=== PATIENT | male | born 1985 | race Caucasian/White ===

== ENCOUNTER 2021-10-08 11:44 | Emergency (ER) | payer OTHER, SELFPAY ==
--- NOTE | 2021-10-08 | ECG_ITS ---
Test Reason : chest pain Blood Pressure : / mmHG Vent. Rate : 107 BPM Atrial Rate : 107 BPM P-R Int : 118 ms QRS Dur : 090 ms QT Int : 318 ms P-R-T Axes : 088 091 067 degrees QTc Int : 424 ms Sinus tachycardia Right atrial enlargement Rightward axis Pulmonary disease pattern Abnormal ECG When compared with ECG of 31-JUL-2019 09:37, Vent. rate has increased BY 40 BPM Referred By: Generic ED Physician Electronically Signed By:Cornell Carrillo
--- NOTE | ~2021-10-08 | XR_ITS ---
EXAMINATION: XR CHEST CLINICAL INFORMATION: Chest pain. COMPARISON: Chest done on 08/25/2019. TECHNIQUE: 2 views of the chest were obtained. FINDINGS: Asymmetric low lung volume is noted within the right hemithorax with evidence of postsurgical sutures at right lung apex with overlying pleural thickening and persistent blunting of the right lateral CP angle, similar to prior study dated 120. Parenchymal thickening at left lung apex is also unchanged. Otherwise both lung pena are clear. Cardiac mediastinal silhouette is within normal limit. Mild multilevel degenerative spondylosis is seen in the spine. Moderate diffuse. No significant change. XR/XR chest 2V IMPRESSION: No significant change since 08/25/2019. No radiographic evidence of acute cardiopulmonary disease.
[2021-10-08 12:16] VITALS: BP 148/93; PULSE 100; RESP 18; TEMP 36.2; O2SAT 96; BMI 19.6
[2021-10-08 12:26] LABS: MANUAL DIFF FLAG NO
[2021-10-08 12:28] LABS: Basophils Percent Auto 0.5 % (0-2); Eosinophils Percent Auto 0.5 % (0-4); Hematocrit 47.4 % (42.0-52.0); Hemoglobin 15.7 g/dl (14.0-18.0); Imm Gran Abs Auto 0.01 X10*3/uL (0.00-0.03); Imm Gran Pct Auto 0.2 % (0.0-0.4); Lymphocytes Absolute Auto 1.6 X10*3/uL (1.2-4.9); Lymphocytes Percent Auto 28.4 % (20-40); Mean Corpuscular HGB Conc 33.1 g/dl (31.0-36.0); Mean Corpuscular Hemoglobin 30.8 pg (27.0-33.0); Mean Corpuscular Volume 93.1 fL (80.0-98.0); Mean Platelet Volume 8.8 fL (9.4-12.4); Monocytes Absolute Auto 0.7 X10*3/uL (0.1-1.2); Monocytes Percent Auto 11.8 % (2-11); Neutrophils Absolute Auto 3.2 x10*3/uL (2.0-8.3); Neutrophils Percent Auto 58.6 % (45-73); Platelet Count 264 X10*3/uL (160-400); Red Blood Count 5.09 X10*6/uL (4.60-5.80); Red Cell Distribution Width 12.8 % (11.0-16.0); White Blood Count 5.5 X10*3/uL (4.8-10.8)
[2021-10-08 12:50] LABS: Anion Gap 13 (12-20); Blood Urea Nitrogen 14 mg/dL (9-16); Calcium 10.2 mg/dL (8.4-10.2); Carbon Dioxide 30 mmol/L (22-29); Chloride 102 mmol/L (96-108); Creatinine Clr Calc Pharmacy 92.2; Estimated Glomerular Filt Rate > 60; Glucose Random 120 mg/dL (60-115); Potassium 4.1 mmol/L (3.3-5.1); Sodium 141 mmol/L (135-145)
[2021-10-08 13:09] LABS: Troponin-I High Sensitivity < 3.5 ng/L (<3.5-35.0)
--- NOTE | 2021-10-08 14:12 | ED.CHESTPAIN ---
HPI - Chest Pain General Chief Complaint: Chest Pain Stated Complaint: chest pains Time Seen by Provider: 10/08/21 14:10 Source: patient Mode of arrival: ambulatory Limitations: no limitations History of Present Illness MD complaint: chest pain (pleuritic chest pain) Pertinent past history: other (pneumothorax 2 years ago) Onset (ago): week(s) (2) Timing of current episode: episodic Prior episodes: No Onset: during rest Pain location: left chest Pain radiation: none Severity: moderate Quality: sharp Relieving factors: nothing Exacerbating factors: inspiration and other (sneezing, coughing) Associated symptoms: cough Treatment prior to arrival: none Related Data Previous Rx's Medication Instructions Recorded albuterol sulfate 90 mcg/actuation 2 puff INHALATION QID PRN #6.7 g 10/08/21 aerosol inhaler azithromycin 500 mg tablet See Rx Instructions .ROUTE 10/08/21 .COMPLEX #6 tab prednisone 20 mg tablet 40 mg PO DAILY 5 Days #10 tab 10/08/21 Allergies Allergy/AdvReac Type Severity Reaction Status Date / Time No Known Drug Allergies Allergy Unknown N/A Verified 10/08/21 12:13 [NO KNOWN DRUG ALLERGIES] CATS Allergy Unknown Unknown Uncoded 10/08/21 12:13 TREE Allergy Unknown Unknown Uncoded 10/08/21 12:13 Review of Systems Review of Systems: Constitutional : No Weight loss, No Fever, No Chills ENT/Mouth : No sore throat, No Rhinorrhea Eyes: No Eye Pain, No Swelling Cardiovascular : pos Chest Pain, no SOB, no Dyspnea on Exertion, No Orthopnea, No Edema, No Palpitations Respiratory : pos Cough, No Sputum Gastrointestinal : no Nausea, No Vomiting, No Diarrhea, No abdominal Pain, No Hematochezia, No Melena Genitourinary : No Dysuria, No Urinary Frequency Musculoskeletal : No joint pain, No Myalgias, No Joint Swelling Skin : No Skin Lesions, No rash Neuro : No Weakness, No Numbness, No Dizziness, No Headache Psych : No Anxiety/Panic, No Depression Heme/Lymph: No Bruising, No Lymphadenopathy Endocrine : No Polyuria, No Polydipsia All other systems reviewed and are negative PMFSH Past Medical History Attestation statement: The following information was validated with the patient. Medical History Pneumothorax Social History Social History (Updated 10/08/21 @ 15:40 by Janelle Ventura DO) Patient Tobacco Use Status: Former Tobacco user Advance Directives: No Advance Directives Information Provided: No Physical Exam Vital Signs: Vital Signs: Last Vital Signs Temp 97.2 F 10/08/21 12:16 Pulse 80 10/08/21 14:53 Resp 17 10/08/21 14:53 BP 120/86 10/08/21 14:53 Pulse Ox 98 10/08/21 14:53 BMI result Body Mass Index 19.6 Appearance: Alert. Oriented X3. No acute distress. Thin and tall Eyes: Pupils equal, round and reactive to light. ENT: Pharynx normal. Neck: Normal inspection. Neck supple. CVS: Normal heart rate and rhythm. Pulses normal. Respiratory: No respiratory distress. Breath sounds normal. Abdomen: Soft and non-tender. Skin: Skin warm and dry. Normal skin color. Normal skin turgor. Extremities: No lower extremity edema. No calf ttp Neuro: Oriented X 3. No motor deficit. No sensory deficit. Course Course Course Narrative: negative workup will treat as pleurisy MDM - Chest Pain MDM Narrative Medical decision making narrative: 36 yo male with hx of R sided pneumothorax comes in with c/o pleuritic L sided chest pain worse with cough has hx of asthma at this time will obtain ddimer, troponin x 2, CXR could be pneumonia vs pleurisy, seems low risk for PE/ACS - his EKG shows pulm pattern so I will refer him to pulmonology as well. dispo per results and findings. Lab Data Result diagrams: 10/08/21 12:22 10/08/21 12:22 Labs: Lab Results 10/08/21 10/08/21 10/08/21 Range/Units 12:22 12:22 12:22 WBC 5.5 (4.8-10.8) X10*3/uL RBC 5.09 (4.60-5.80) X10*6/uL Hgb 15.7 (14.0-18.0) g/dl Hct 47.4 (42.0-52.0) % MCV 93.1 (80.0-98.0) fL MCH 30.8 (27.0-33.0) pg MCHC 33.1 (31.0-36.0) g/dl RDW 12.8 (11.0-16.0) % Plt Count 264 (160-400) X10*3/uL MPV 8.8 L (9.4-12.4) fL Immature Gran % (Auto) 0.2 (0.0-0.4) % Neut % (Auto) 58.6 (45-73) % Lymph % (Auto) 28.4 (20-40) % [place] % (Auto) 11.8 H (2-11) % Eos % (Auto) 0.5 (0-4) % Baso % (Auto) 0.5 (0-2) % Lymph # (Auto) 1.6 (1.2-4.9) X10*3/uL [place] # (Auto) 0.7 (0.1-1.2) X10*3/uL Eos # (Auto) 0.0 (0.0-0.4) X10*3/uL Baso # (Auto) 0.0 (0.0-0.2) X10*3/uL Abs Immat Gran (auto) 0.01 (0.00-0.03) X10*3/uL Absolute Neuts (auto) 3.2 (2.0-8.3) x10*3/uL Absolute Nucleated RBC 0.000 (0.0-0.012) X10*3/uL Nucleated RBC % (auto) 0.0 (0.0-0.2) /100WBC D-Dimer High Sensitivty NG/ML Sodium 141 (135-145) mmol/L Potassium 4.1 (3.3-5.1) mmol/L Chloride 102 (96-108) mmol/L Carbon Dioxide 30 H (22-29) mmol/L Anion Gap 13 (12-20) BUN 14 (9-16) mg/dL Creatinine 1.03 (0.5-1.4) mg/dL Estim Creat Clear Calc 92.2 Estimated GFR > 60 Random Glucose 120 H (60-115) mg/dL Calcium 10.2 (8.4-10.2) mg/dL Troponin I High Sens < 3.5 (<3.5-35.0) ng/L C-Reactive Protein 0.96 H (< or = 0.50) mg/dL 10/08/21 Range/Units 14:41 WBC (4.8-10.8) X10*3/uL RBC (4.60-5.80) X10*6/uL Hgb (14.0-18.0) g/dl Hct (42.0-52.0) % MCV (80.0-98.0) fL MCH (27.0-33.0) pg MCHC (31.0-36.0) g/dl RDW (11.0-16.0) % Plt Count (160-400) X10*3/uL MPV (9.4-12.4) fL Immature Gran % (Auto) (0.0-0.4) % Neut % (Auto) (45-73) % Lymph % (Auto) (20-40) % [place] % (Auto) (2-11) % Eos % (Auto) (0-4) % Baso % (Auto) (0-2) % Lymph # (Auto) (1.2-4.9) X10*3/uL [place] # (Auto) (0.1-1.2) X10*3/uL Eos # (Auto) (0.0-0.4) X10*3/uL Baso # (Auto) (0.0-0.2) X10*3/uL Abs Immat Gran (auto) (0.00-0.03) X10*3/uL Absolute Neuts (auto) (2.0-8.3) x10*3/uL Absolute Nucleated RBC (0.0-0.012) X10*3/uL Nucleated RBC % (auto) (0.0-0.2) /100WBC D-Dimer High Sensitivty < 150 NG/ML Sodium (135-145) mmol/L Potassium (3.3-5.1) mmol/L Chloride (96-108) mmol/L Carbon Dioxide (22-29) mmol/L Anion Gap (12-20) BUN (9-16) mg/dL Creatinine (0.5-1.4) mg/dL Estim Creat Clear Calc Estimated GFR Random Glucose (60-115) mg/dL Calcium (8.4-10.2) mg/dL Troponin I High Sens (<3.5-35.0) ng/L C-Reactive Protein (< or = 0.50) mg/dL ECG Data ECG #1: Attestation: I personally reviewed and interpreted this ECG as follows: ECG interpretation date: 10/08/21 ECG interpretation time: 15:11 Interpretation: Rate: 107 Rhythm: sinus tachycardia Ten Sleep: rightwards pulm p waves. Normal TIFF. Normal QRS complex. ST T wave : no LINDSAY, normal qTC: normal prior studies: no acute ischemia The study has been interpreted contemporaneously by me. . Discharge Plan Discharge Clinical Impression: Pleurisy Patient Disposition: Home, Self-Care Instructions: Pleurisy (ED) Additional Instructions: return to ED for any worsening symptoms or concerns Prescriptions: New prednisone 20 mg tablet 40 mg PO DAILY 5 Days Qty: 10 0RF albuterol sulfate 90 mcg/actuation HFA aerosol inhaler 2 puff inhalation QID PRN (Reason: shortness of breath or wheezing) Qty: 6.7 0RF azithromycin 500 mg tablet See Rx Instructions .ROUTE .COMPLEX Qty: 6 0RF Rx Instructions: take 500 mg today (day 1), then 250 mg for 4 days (days 2-5) Referrals: Berny Gurrola MD [Physician] - 2 weeks Stand Alone Forms: Work/School Release
[2021-10-08 14:30] LABS: C Reactive Protein 0.96 mg/dL (< or = 0.50)
[2021-10-08 14:53] VITALS: BP 120/86; PULSE 80; RESP 17; O2SAT 98
[2021-10-08 14:58] LABS: D Dimer High Sensitivity < 150 NG/ML
[2021-10-08 15:04] LABS: Troponin-I High Sensitivity < 3.5 ng/L (<3.5-35.0)
--- NOTE | 2021-10-08 15:52 | PC.NURSE ---
Pt D/C from ER with instructions and eprescriptions. Pt states understanding and denies any further questions. Pt ambulatory to ride home.
== END 2021-10-08 15:42 | disposition home or self-care (01) ==
PROVIDERS: Emergency Provider Emergency Medicine
DX: R09.1 Pleurisy (principal)
CPT/HCPCS: 36415; 71046; 80048; 84484; 85025; 85379; 86140; 93005; 99283

== ENCOUNTER → 2022-09-01 15:30 | Outpatient (BNVA) | payer OTHER, SELFPAY | PROVIDERS: PCP Nurse Practitioner Family; Visit Provider Internal Medicine | DX: J45.909 Unspecified asthma, uncomplicated (principal) | CPT/HCPCS: 99202 ==

== ENCOUNTER 2022-09-24 07:59 | Outpatient (REF) | payer OTHER, SELFPAY ==
--- NOTE | 2022-09-24 10:16 | PFT_ITS ---
INDICATION: Cough. SPIROMETRY: FEV1 to FVC of 74% with an FVC of 5.01 L, which is 88% predicted and an FEV1 of 3.7 L, which is 81% predicted. No significant response to bronchodilators noted. Maximum voluntary ventilation is 70% predicted. LUNG VOLUMES: Total lung capacity 86% predicted. DIFFUSION CAPACITY: DLCO of 76% predicted. COMPARISONS: None. INTERPRETATION: There appears to be reversible obstructive ventilatory defect consistent with asthma. No significant response to bronchodilators noted. There is mild decrease in maximum voluntary ventilation which could be secondary to deconditioning. Lung volumes are low normal and the patient does have mild diffusion impairment. Clinical correlation warranted. Byron Coronel MD MR/MODL / [id number]
== END 2022-09-24 08:00 | disposition home or self-care (01) ==
LOC: HO.RESP 07:59
PROVIDERS: PCP Nurse Practitioner Family; Visit Provider Internal Medicine
DX: J45.909 Unspecified asthma, uncomplicated (principal)
CPT/HCPCS: 94060; 94727; 94729; 99212

== ENCOUNTER 2023-05-06 13:52 | Outpatient (AMB) | payer OTHER, SELFPAY ==
[2023-05-06 13:56] VITALS: BP 102/60; PULSE 71; O2SAT 97; BMI 18.3
--- NOTE | 2023-05-06 13:56 | A.OFFVIS_ITS ---
Intake Vital Signs 05/06/23 13:56 Height 6 ft Weight 135 lb BMI 18.3 BP 102/60 Blood Pressure Location Lt brachial Position Sitting Pulse 71 Pulse Source Pulse Oximeter Pulse Oximetry (%) 97 Oxygen Delivery Method Room Air Intake Visit Reasons: 6 Mo Follow Up Intake Note: pt is here for follow up and doing well. pt needs refill on albuterol Preparation Center Coordinator Required: No Allergies No Known Drug Allergies [NO KNOWN DRUG ALLERGIES] Allergy (Unknown, Verified 05/06/23 14:07) N/A CATS Allergy (Unknown, Uncoded 05/06/23 14:07) Unknown TREE Allergy (Unknown, Uncoded 05/06/23 14:07) Unknown Medication List - Last Reconciled 05/06/23 by Dalila Bentley MD albuterol sulfate 90 mcg/actuation 1 puff inhalation QID PRN Do you need a note to return to daycare/school/sports/work: No HPI 6 Mo Follow Up HPI Details THIS [age] YE[age] GENTLEMAN IS HERE FOR FOLLOW-UP AFTER SIX MONTHS. HE HAS BEEN FREE OF ANY ATTACKS OF WHEEZING OR COUGH. HE HAS USED ALBUTEROL ONLY A FEW TIMES IN THE LAST SIX MONTHS. IN THEY HAVE MADE THE AIR DOG SLEEP IN A SEPARATE BED BUT IN THE SAME ROOM. HE CLAIMS THAT MOST OF THE TIME IT IS THE GRASS AND DUST WHICH AGGRAVATES HIS NASAL CONGESTION AND WHEEZING. LONG HE CAN AVOID THESE TRIGGERS HE IS OKAY. HE HAS STOPPED USING MONTELUKAST SINCE A FEW MONTHS AGO. [facility] Medical History Bronchial asthma Pneumothorax Social History Housing: House Patient Tobacco Use Status: Former Tobacco user Quit Date: quit 3 years ago e-Cigarette/Vaping Use: Never Used Second Hand Smoke Exposure: No service: No Current occupational status: employed Current occupation: [employer] Current occupational exposures/hazards: Yes Cognitive needs: No Hearing needs: No Vision needs: No Review of Systems Const All systems reviewed & are unremarkable except as noted in HPI and below Physical Exam Vital Signs: Last Vital Signs Pulse 71 05/06/23 13:56 BP 102/60 05/06/23 13:56 Pulse Ox 97 05/06/23 13:56 Oxygen Delivery Method Room Air 05/06/23 13:56 BMI result Body Mass Index 18.3 Const General: healthy appearing (Of a thin build), comfortable, no acute distress, alert and awake Orientation/consciousness: patient oriented x3 HEENT Head: Yes normal to inspection General nose exam: No nasal polyps present and No nasal discharge present Face and sinus: Yes sinuses nontender Mouth: oropharynx normal Throat: Yes posterior oropharynx normal Eyes General: appearance normal, both eyes and all related structures Neck Neck: Yes normal visual inspection, Yes no lymphadenopathy, Yes trachea midline and Yes no JVD Thyroid: Thyroid normal Chest Chest palpation & inspection: normal inspection of the chest, normal palpation of entire chest wall and no tenderness Resp Other: Percussion note hyper-resonant, breath sounds are distant. No wheezes or rhonchi are heard. Cardio Palpation: normal PMI Rate: regular rate Rhythm: regular rhythm Heart sounds: no gallops and no murmurs Peripheral pulses: Peripheral pulses 2+ throughout GI Palpation (GI): Soft to palpation, nontender, No hepatosplenomegaly present and no masses Auscultation: normal bowel sounds Back/Spine/Pelvis Thoracic/Lumbar Spine: thoracic and lumbar spine normal to inspection Skin General skin exam: no rashes or lesions noted Neuro General: patient oriented x3 and no focal motor deficits Cranial nerves: Yes CN's II-XII intact bilaterally Extrem General: Yes normal to inspection, Yes no clubbing, cyanosis or edema and Yes no calf tenderness Psych Appearance: grossly normal and well kempt Speech and movement: Normal speech and movement present Assessment & Plan Assessment & Plan (1) Bronchial asthma: Comment: PULMONARY FUNCTION TEST SHOWS A MILD OBSTRUCTIVE DISORDER, THERE IS A MINIMAL IMPROVEMENT WITH BD CHALLENGE. HE HAS LEARNED TO AVOID THE TRIGGERS, SUCH DOG DANDER, GROSS IS AN DUST. AND HIS ASTHMA IS UNDER GOOD CONTROL. [place] : USE ALBUTEROL TWO PUFFS Q SIX HOURS ONLY P.R.N.. NO NEED. OF USING MONTELUKAST REVISIT ONCE A YEAR AND NEEDED. Code(s): J45.909 - Unspecified asthma, uncomplicated Coding Level of Care Code Est Pt Level 3 (79673) Diagnoses Bronchial asthma J45.909
== END 2023-05-06 14:12 | disposition home or self-care (01) ==
PROVIDERS: PCP Nurse Practitioner Family; Visit Provider Internal Medicine
DX: J45.909 Unspecified asthma, uncomplicated (principal)
CPT/HCPCS: 99213

== ENCOUNTER → 2023-05-06 13:52 | Outpatient (BNVA) | payer OTHER, SELFPAY | PROVIDERS: Visit Provider Internal Medicine | DX: J45.909 Unspecified asthma, uncomplicated (principal) | CPT/HCPCS: 99212 ==